=== PATIENT | female | born 1990 | race Caucasian/White ===

== ENCOUNTER 2022-07-19 07:35 | Inpatient (IN) ==
[2022-07-19] MEDS ORDERED: LIDOCAINE 1% LOCAL 20 ML VIAL INFIL PRN (07:55)
[2022-07-19] MEDS ORDERED: OXYTOCIN 30 UNITS/500 ML BAG IV PRN ×3 (07:55→14:50)
[2022-07-19 08:23] LABS: Hematocrit (blood only) 30.3 % (34.1-44.9); Hemoglobin 9.6 g/dl (12.0-16.0); Mean Corpuscular Hgb Conc 31.7 g/dL (32.0-36.0); Mean Corpuscular Volume 78.9 fL (80.0-100.0); Mean Platelet Volume 10.9 fL (9.4-12.3); Platelet Count 219 K/uL (130-400); RDW Coefficient of Variation 15.6 % (11.5-14.5); RDW Standard Deviation 44.5 fL (36.4-46.3); Red Blood Count 3.84 M/uL (3.93-5.22); White Blood Count 7.03 K/ul (4.8-10.8)
[2022-07-19] MEDS: LACTATED RINGER'S 1,000 ML IV PRN ×2 (09:07→13:25)
--- NOTE | 2022-07-19 12:08 | History & Physical Report ---
Date of Service July 19, 2022 Assessment & Plan (1) Encounter for supervision of normal in multigravida: Plan: Admit to L&D for IOL. Labs, EFM/toco. Pitocin. Will plan for epidural when she desires. Glucose hourly. Admission and Anticipated Discharge Date Admission Date: July 19, 2022 History of Present Illness Chief Complaint: eIOL Primary Care Provider: Xi Xie 32yo @ 41 12/08, here for eIOL. + movement, no leaking fluid or bleeding. Not feeling ctx. with: Late presentation 16 weeks Flu vaccine given 04/27/22- MK Gestational Diabetes Monthly growth u/s's Allergies Allergy/AdvReac Type Severity Reaction Status Date / Time No Known Allergies Allergy Verified 07/15/22 09:18 Home Medications Medication Instructions Recorded Confirmed Type ondansetron 4 mg disintegrating 4 mg PO Q6H #20 tabs 03/29/22 07/19/22 Rx tablet acetone (urine) test (Ketone Urine #50 ea 05/10/22 07/19/22 Rx Test strips) blood sugar diagnostic (OneTouch #150 ea 05/10/22 07/19/22 Rx Verio test strips) blood-glucose meter (OneTouch #1 ea 05/10/22 07/19/22 Rx Verio Reflect Meter) lancets 33 gauge (OneTouch Delica #150 ea 05/10/22 07/19/22 Rx Plus Lancet) Patient History Medical History Anxiety History of chicken pox Miscarriage Surgical History S/P wisdom tooth extraction Status post surgery arm fracture Family History (Updated 01/29/22 @ 09:58 by Lizz Jensen) Aunt Breast cancer Father Hypertension Denies family history of Ovarian cancer Colorectal cancer Social History (Updated 01/29/22 @ 09:59 by Lizz Jensen) Smoking Status: Never smoker Hx Alcohol Use: No Hx Substance Use: No Preferred Language: Welsh Communication Ability: Effective Rand Sewer Required: No Beliefs That Will Affect Care: None marital status: marital status details: marc Suggs (31) [phone] Current Living Situation: Spouse Current Living Situation Comment: lives with spouse, daughter, no pets current occupational status: employed 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 No s/s chorio or abruption. Skin: no rashes, warm and dry Psychiatric: A+Ox3, euthymic affect Results & Data ([facility]) Vital Signs (Past 12 Hours) Vital Signs Temp Pulse Resp BP 07/19/22 07:54 36.8 C 18 07/19/22 11:30 18 07/19/22 11:30 36.8 C 18 07/19/22 11:29 71 119/66 07/19/22 10:32 74 127/75 07/19/22 09:46 76 111/72 07/19/22 09:10 78 110/69 07/19/22 07:52 113 H 116/64 Coding Level of Care Code None Diagnoses Encounter for supervision of normal in multigravida Z34.80
[2022-07-19] MEDS ORDERED: SODIUM CHLORIDE 0.9% INJ 10 ML VIAL ONE (12:55)
[2022-07-19] MEDS ORDERED: BUPIVACAINE 0.25% 30 ML VIAL ONE (12:55)
[2022-07-19] MEDS ORDERED: fentaNYL citrate 100 MCG/2 ML VIAL ONE (12:55)
[2022-07-19] MEDS ORDERED: ePHEDrine sulfate 50 MG/ML AMP ONE (12:55)
[2022-07-19] MEDS ORDERED: LIDOCAINE 2%/EPINEPHRINE 1:200,000 20 ML SDV ONE (12:56)
[2022-07-19] MEDS ORDERED: fentaNYL 2MCG/ML ROPIVACAINE 1.25MG/ML 100 ML BAG EPI ONE (12:56)
[2022-07-19] MEDS ORDERED: NALBUPHINE HCL INJ 10 MG/ML AMP IV PRN (13:12)
[2022-07-19] MEDS ORDERED: diphenhydrAMINE 50 MG/ML VIAL IV PRN (13:12)
[2022-07-19] MEDS ORDERED: NALOXONE HCL 1 MG in SODIUM CHLORIDE 0.9% 1000ML 1,000 ML IV PRN (13:12)
[2022-07-19] MEDS ORDERED: ePHEDrine sulfate 50 MG/ML AMP IV PRN (13:12)
[2022-07-19] MEDS ORDERED: fentaNYL 2MCG/ML ROPIVACAINE 1.25MG/ML 100 ML BAG EPI PRN (13:12)
[2022-07-19] MEDS ORDERED: NALOXONE HCL 0.4 MG/1 ML VIAL/CARP IV PRN (13:12)
--- NOTE | 2022-07-19 13:12 | Anesthesiology Consultation ---
Date of Service July 19, 2022 Assessment & Plan (1) Encounter for pre-operative examination: Chart Review Chart Review: Patient NOT seen in Pre Admission Testing and Acceptable Risk for Labor Epidural Consults Requested none History Height/Weight Height: 5 ft 7 in Weight: 104.326 kg Allergies Allergy/AdvReac Type Severity Reaction Status Date / Time No Known Allergies Allergy Verified 07/15/22 09:18 Medications Home Medications Medication Instructions Recorded Confirmed Last Taken ondansetron 4 mg disintegrating 4 mg PO Q6H #20 tabs 03/29/22 07/19/22 06/28/22 tablet acetone (urine) test (Ketone Urine #50 ea 05/10/22 07/19/22 Unknown Test strips) blood sugar diagnostic (OneTouch #150 ea 05/10/22 07/19/22 Unknown Verio test strips) blood-glucose meter (OneTouch #1 ea 05/10/22 07/19/22 Unknown Verio Reflect Meter) lancets 33 gauge (OneTouch Delica #150 ea 05/10/22 07/19/22 Unknown Plus Lancet) Active Medications Generic Name Dose Route Start Last Admin Trade Name Freq PRN Reason Stop Dose Admin Oxytocin 30 units in 500 mls @ 11 mls/hr 07/19/22 07:55 07/19/22 12:47 Pitocin IV 07/21/22 07:54 0.66 units/hr .Q24H PRN 11 mls/hr Labor Induction/Augmentation Titration Protocol 0.66 UNITS/HR Lactated Ringer's 1,000 mls @ 125 mls/hr 07/19/22 07:55 07/19/22 13:06 Lr IV 07/21/22 07:54 999 mls/hr .Q8H PRN Infusion L&D Protocol Protocol Past Medical History Medical History Anxiety History of chicken pox Miscarriage Past Family History Family History Aunt Breast cancer Father Hypertension Denies family history of Ovarian cancer Colorectal cancer Past Surgical History Surgical History S/P wisdom tooth extraction Status post surgery arm fracture Social History Smoking Status: Never smoker Hx Alcohol Use: No Hx Substance Use: No Physical Exam Vital Signs Last Vital Signs Temp 98.2 F 07/19/22 11:30 Pulse 63 07/19/22 12:33 Resp 18 07/19/22 11:30 BP 102/59 L 07/19/22 12:33 Testing Laboratory Results 07/19/22 08:04 Blood Type Cancelled 07/19/22 08:04 Blood Type O Positive 07/19/22 08:04 Antibody Screen Cancelled 07/19/22 08:04 Antibody Screen NEGATIVE 07/19/22 08:04 07/19/22 07/19/22 07/19/22 12:35 11:28 10:31 POC Glucose 78 86 82 07/19/22 07/19/22 09:45 08:43 POC Glucose 89 98
--- NOTE | 2022-07-19 14:42 | Delivery Summary ---
Vaginal Delivery Summary Date of Service July 19, 2022 Vaginal Delivery Summary Vaginal Delivery Summary: Pre-delivery diagnoses: 32yo @ 39 6/7, eIOL, GDMA1 Post-delivery diagnoses: same Procedure: spontaneous vaginal delivery, repair of episiotomy Surgeon: Nicole Lombardo DO Complications: none Findings: Viable male . Apgars: 8/9. Weight pending, please see nursery records Estimated blood loss: 300ml Description of delivery: The patient progressed to complete with epidural anesthesia. She then began to push. While pushing, her perineum was stretched with only a small opening, significant pain with pushes, and unable to push to allow tissue to tear naturally. I was concerned that this may cause a tissue dystocia or significant swelling of the perineum - therefore I briefly counseled the patient on episiotomy, she agreed. A small midline episiotomy was cut during a contraction, with ride operator's fingers inside the vagina to prevent injury. She then spontaneously vaginally delivered a viable from the cephalic presentation. The head delivered in YASH position. The anterior shoulder delivered, followed by the posterior shoulder, followed by the body. No nuchal. The baby was placed on mother's abdomen and a spontaneous cry was heard. Delayed cord clamping was employed, and the cord was doubly clamped and cut. A segment was retained for cord gases. Cord blood was obtained. The placenta was delivered spontaneously intact with a 3-vessel cord. The uterus and vagina were swept of clots and debris. IV pitocin was given. The uterus became firm. The cervix, vagina, and perineum were inspected and the episiotomy was repaired with 3-0 Vicryl in standard fashion. Excellent hemostasis was observed. The mother and baby are recovering in stable and good condition in the room. Sponge, needle and instrument counts were correct x 2. Nicole Lombardo DO [facility]
--- NOTE | 2022-07-19 14:48 | Anesthesia Procedure Note ---
Date of Service July 19, 2022 Anesthesia Post Epidural Note Vital Signs Vital Signs: Temp Pulse Resp BP Pulse Ox 98.2 F 84 16 128/60 99 07/19/22 11:30 07/19/22 14:40 07/19/22 14:41 07/19/22 14:40 07/19/22 14:14 Notes Mental Status: alert / awake / arousable and participated in evaluation Nausea / Vomiting: adequately controlled Pain: adequately controlled Airway Patency, RR, SpO2: stable & adequate BP & HR: stable & adequate Hydration State: stable & adequate Neuraxial Anesthesia: was administered and sensory block is resolving Anesthetic Complications: no major complications apparent and Pt Satisfied with anesthetic care Epidural: Removed without complications and With tip intact
[2022-07-19] MEDS ORDERED: HYDROCORTISONE ACETATE 25 MG SUPP PR PRN (14:50)
[2022-07-19] MEDS ORDERED: BENZOCAINE 20% AER SPR 82.5 GM CAN EXT PRN (14:50)
[2022-07-19] MEDS ORDERED: bisacodyL 10 MG SUPP PR PRN (14:50)
[2022-07-19] MEDS ORDERED: oxyCODONE/ACETAMINOPHEN 5mg/325mg TAB PO PRN (14:50)
[2022-07-19] MEDS ORDERED: ACETAMINOPHEN 325 MG TAB PO PRN (14:50)
[2022-07-19] MEDS ORDERED: DIPHTHERIA/TETANUS/PERTUSSIS 0.5mL SYR/VIAL (Age 7+yrs) IM ONE (14:50)
[2022-07-19] MEDS: ceFAZolin 1000MG 1,000 MG/7.5 ML SYR IV SCH ×2 (15:38→23:28)
[2022-07-19] MEDS: DOCUSATE SODIUM 100 MG CAP PO SCH (21:01)
[2022-07-20] MEDS: IBUPROFEN 600 MG TAB PO PRN ×3 (03:28→20:36)
--- NOTE | 2022-07-20 06:49 | Obstetrical Progress Note ---
Date of Service <Fatmata Recinos MD - Last Filed: 07/20/22 06:55> July 20, 2022 Assessment & Plan <Fatmata Recinos MD - Last Filed: 07/20/22 06:55> (1) care following vaginal delivery: 32 y/o @ 39 6/7 now PPD1 after - O+, GBS neg, RI. Satisfactory post progress. Tolerating PO. Encourage ambulation. c/b GDM diet controlled. <Nicole Lombardo DO - Last Filed: 07/20/22 08:47> (1) care following vaginal delivery: Subjective <Fatmata Recinos MD - Last Filed: 07/20/22 06:55> Ambulation: ambulating normally Voiding: no voiding problems Passing Gas:: Yes Diet Tolerance:: regular diet Lochia:: Small Physical Exam <Fatmata Recinos MD - Last Filed: 07/20/22 06:55> Constitutional WD/WN, vitals as above Respiratory normal respiratory effort, lungs clear to auscultation Cardiovascular RRR, no murmur, no edema Extremities: no calf tenderness Genitourinary OB Exam Abdomen: + fundal height (@ the level of the umbilicus) Fundus: + firm Results & Data ([facility]) <Fatmata Recinos MD - Last Filed: 07/20/22 06:55> Vital Signs (Past 12 Hours) Vital Signs Temp Pulse Resp BP Pulse Ox O2 Del Method 07/20/22 03:15 36.7 C 71 18 123/78 97 Room Air 07/19/22 22:57 36.9 C 81 18 112/70 97 Room Air 07/19/22 21:10 36.8 C 62 18 126/72 96 Room Air <Nicole Lombardo DO - Last Filed: 07/20/22 08:47> Co-Signing Physician Notes Resident Physician Supervision Note: I was present with Dr. Recinos during the history and exam. I discussed the case with the resident and agree with the findings and plan as documented in the note. Any exceptions or clarifications are listed here: PPD#1 doing well. Might choose to go home later. Reviewed PP instructions. Documented By: Nicole Lombardo, DO Resident Activity Tracking <Fatmata Recinos MD - Last Filed: 07/20/22 06:55> Resident Involvement: Resident Care Provided Care Provided: OB Delivery
[2022-07-20 07:08] LABS: Hematocrit (blood only) 27.4 % (34.1-44.9); Hemoglobin 8.6 g/dl (12.0-16.0); Mean Corpuscular Hemoglobin 24.9 pg (25.0-34.0); Mean Corpuscular Hgb Conc 31.4 g/dL (32.0-36.0); Mean Corpuscular Volume 79.2 fL (80.0-100.0); Mean Platelet Volume 10.8 fL (9.4-12.3); Platelet Count 185 K/uL (130-400); RDW Coefficient of Variation 15.9 % (11.5-14.5); Red Blood Count 3.46 M/uL (3.93-5.22); White Blood Count 12.06 K/ul (4.8-10.8)
[2022-07-20] MEDS: ceFAZolin 1000MG 1,000 MG/7.5 ML SYR IV SCH (07:24)
[2022-07-20] MEDS: PRENATAL VITAMIN 1 TAB PO SCH (07:54)
[2022-07-20] MEDS: DOCUSATE SODIUM 100 MG CAP PO SCH ×2 (07:54→20:36)
[2022-07-20] MEDS ORDERED: bisacodyL 5 MG TABEC PO SCH (20:00)
[2022-07-21 06:11] LABS: Hematocrit (blood only) 27.8 % (34.1-44.9); Hemoglobin 8.6 g/dl (12.0-16.0)
--- NOTE | 2022-07-21 06:32 | Obstetrical Progress Note ---
Date of Service <Fatmata Recinos MD - Last Filed: 07/21/22 06:54> July 21, 2022 Assessment & Plan <Fatmata Recinos MD - Last Filed: 07/21/22 06:54> (1) care following vaginal delivery: 32 y/o @ 39 6/7 now PPD1 after - O+, GBS neg, RI. Satisfactory post progress. Tolerating PO. Encourage ambulation. c/b GDM diet controlled. <Donavan Marmolejo MD, FACOG - Last Filed: 07/21/22 08:48> (1) care following vaginal delivery: Subjective <Fatmata Recinos MD - Last Filed: 07/21/22 06:54> Ambulation: ambulating normally Voiding: no voiding problems Passing Gas:: Yes Diet Tolerance:: regular diet Lochia:: Small Feeding Type:: breast feeding Physical Exam <Fatmata Recinos MD - Last Filed: 07/21/22 06:54> Constitutional WD/WN, vitals as above Respiratory normal respiratory effort, lungs clear to auscultation Cardiovascular RRR, no murmur, no edema Extremities: no calf tenderness Genitourinary OB Exam Abdomen: + fundal height (@ the level of the umbilicus) Fundus: + firm Results & Data ([facility]) <Fatmata Recinos MD - Last Filed: 07/21/22 06:54> Vital Signs (Past 12 Hours) Vital Signs Temp Pulse Resp BP Pulse Ox O2 Del Method 07/21/22 00:40 36.6 C 77 18 108/64 98 Room Air 07/20/22 20:40 36.8 C 89 20 115/74 97 Room Air <Donavan Marmolejo MD, FACOG - Last Filed: 07/21/22 08:48> Co-Signing Physician Notes Resident Physician Supervision Note: I was present with Dr. Recinos during the history and exam. I discussed the case with the resident and agree with the findings and plan as documented in the note. Any exceptions or clarifications are listed here: [None] Documented By: Donavan Marmolejo MD, FACOG Resident Activity Tracking <Fatmata Recinos MD - Last Filed: 07/21/22 06:54> Resident Involvement: Resident Care Provided Care Provided: OB Delivery
[2022-07-21] MEDS: PRENATAL VITAMIN 1 TAB PO SCH (07:43)
[2022-07-21] MEDS: DOCUSATE SODIUM 100 MG CAP PO SCH (07:43)
--- NOTE | 2022-07-21 12:45 | Communication Note ---
Date of Service: July 21, 2022 Presented to pt's bedside per request. Was in the shower earlier and noted pins and needles in her feet that have since resolved. Started feeling a band like sensation on the anterior aspect of the right lower leg and requested evaluation. Denies CP, SOB. VSS. On exam, lower legs appear symmetric bilaterally anteriorly and posteriorly. No erythema. No tenderness to palpation anteriorly or posteriorly. Unable to replicate the band sensation she had in the front, pt is unable to either. At this point, no obvious s/s of VTE. This was first time that she had been up for longer period of time and first shower so possibly related to positioning and swelling that has since resolved. Pt reassured. Specifically reviewed s/s VTE to call for moving forward, pt verbalized understanding
== END 2022-07-21 13:40 | disposition home or self-care (01) | DRG 807 ==
LOC: 4S1 07:35 → 4E2 17:41